=== PATIENT | female | born 1965 | race American Indian/Alaskan Native ===

== ENCOUNTER 2022-04-04 09:12 | Outpatient (CLI) | payer BC | END 2022-04-04 09:13 | disposition home or self-care (01) | LOC: BICRAD 09:12 | PROVIDERS: ATTEND Family Medicine | DX: M79.671 Pain in right foot (principal); M19.071 Primary osteoarthritis, right ankle and foot ==

== ENCOUNTER 2023-08-27 11:59 | Outpatient (CLI) | payer BC | END 2023-08-27 12:00 | disposition home or self-care (01) | LOC: BICRAD 11:59 | PROVIDERS: ATTEND Family Medicine | DX: J20.9 Acute bronchitis, unspecified (principal) | CPT/HCPCS: 71046 ==

== ENCOUNTER 2023-08-29 14:20 | Outpatient (CLI) | payer BC ==
[2023-08-29 16:14] LABS: ALT (SGPT) 18 U/L (8-55); AST (SGOT) 18 U/L (5-34); Albumin 4.3 g/dL (3.5-5.0); Alkaline Phosphatase 45 U/L (40-110); Bilirubin, Direct 0.1 mg/dL (0.1-0.3); Bilirubin, Total 0.2 mg/dL (0.2-1.2); Protein, Total 6.4 g/dL (6.0-8.3)
== END 2023-08-29 14:21 | disposition home or self-care (01) ==
LOC: LABBT 14:20
PROVIDERS: ATTEND Surgery
DX: Z01.818 Encounter for other preprocedural examination (principal); K80.20 Calculus of gallbladder without cholecystitis without obstruction
CPT/HCPCS: 80076; 93005; 93010

== ENCOUNTER 2023-09-04 06:02 | Day surgery (SDC) | payer BC ==
[2023-08-29 14:53] VITALS: BMI 25.7
[2023-09-04] MEDS ORDERED: Midazolam HCl 2 mg/2 ml Vial ONE (06:16)
[2023-09-04] MEDS ORDERED: SUGAMMADEX SODIUM 200 MG/2 ML VIAL ONE (06:16)
[2023-09-04] MEDS ORDERED: PROPOFOL 20 ML ONE (06:16)
[2023-09-04] MEDS ORDERED: fentaNYL PF 100 MCG/2 ML SYRINGE ONE (06:16)
[2023-09-04] MEDS ORDERED: Ondansetron PF 4 MG/2 ML Vial ONE ×2 (06:17→10:16)
[2023-09-04] MEDS ORDERED: Lidocaine 1% PF 5 ML VIAL ONE (06:17)
[2023-09-04] MEDS ORDERED: Rocuronium Bromide 10 MG/ML (10ML VIAL) ONE (06:17)
[2023-09-04] MEDS ORDERED: Dexamethasone 4 mg/ml Vial ONE (06:17)
[2023-09-04] MEDS ORDERED: Indocyanine Green 25 MG/10 ML VIAL ONE (06:37)
[2023-09-04] MEDS ORDERED: Bupivacaine 0.25% HCL 30 ML VIAL ONE (06:37)
[2023-09-04] MEDS ORDERED: EPINEPHrine 1 MG/ML VIAL ONE (06:37)
[2023-09-04] MEDS ORDERED: Sodium Chloride 0.9% 100 ML ONE (07:29)
[2023-09-04] MEDS ORDERED: cefOXitin 2 GM VIAL ONE (07:29)
[2023-09-04] MEDS ORDERED: HYDROmorphone 0.5 MG/0.5 ML SYRINGE ONE (07:59)
[2023-09-04] MEDS ORDERED: PHENYLEPHRINE-NS 100 MCG/ML 10 ML SYRINGE ONE (07:59)
[2023-09-04] MEDS ORDERED: ePHEDrine Sulfate 50 MG/10 ML VIAL ONE (08:13)
== END 2023-09-04 10:30 | disposition home or self-care (01) ==
LOC: SDC 06:02
PROVIDERS: ATTEND Surgery
PROC: 0FT44ZZ Resection of Gallbladder, Percutaneous Endoscopic Approach (ICD-10-PCS; principal; 2023-09-04)
DX: K80.10 Calculus of gallbladder with chronic cholecystitis without obstruction (principal); I10 Essential (primary) hypertension; E03.9 Hypothyroidism, unspecified; Z90.710 Acquired absence of both cervix and uterus; Z79.890 Hormone replacement therapy; Z91.041 Radiographic dye allergy status; Z88.2 Allergy status to sulfonamides
CPT/HCPCS: 88304; J0171; J0665; J0694; J1100; J1170; J2250; J2405; J2704; J3490